=== PATIENT | female | born 1985 | race Caucasian/White ===

== ENCOUNTER → 2018-10-22 | Outpatient (CLI) | payer BC ==
[~2018-10-22] MED LIST: ACET325 PO; ALBU90OI INH; ASCO1ER PO; AZIT250 PO; CYCL10 PO; ERYSTE250 PO; HYDACE5 PO; HYDACE5325 PO; IBUP800 PO; OMEPRAZOLE MAGN20 MG PO; TYLENOL PO; ZOLOFT PO
[2018-10-22 10:46] LABS: BASOPHILS ABSOLUTE AUTO 0.09 K/mm3 (0.00-0.23); BASOPHILS PERCENT AUTO 1 % (0-2); EOSINOPHILS ABSOLUTE AUTO 0.33 K/mm3 (0.00-0.68); EOSINOPHILS PERCENT AUTO 4 % (0-6); Hematocrit 47.5 % (33.0-51.0); Hemoglobin 15.5 g/dL (11.5-16.0); IMMATURE GRAN ABSOLUTE AUTO 0.02 K/mm3 (0.00-0.10); IMMATURE GRAN PERCENT AUTO 0 % (0-1); LYMPHOCYTES ABSOLUTE AUTO 2.55 K/mm3 (0.84-5.20); LYMPHOCYTES PERCENT AUTO 33 % (21-46); MONOCYTES PERCENT AUTO 5 % (4-13); Mean Corpuscular HGB Conc 32.6 g/dL (31.5-36.5); Mean Corpuscular Volume 98 fL (80-100); Mean Platelet Volume 10.3 fL (9.1-12.4); NEUTROPHILS ABSOLUTE AUTO 4.33 K/mm3 (1.96-9.15); NEUTROPHILS PERCENT AUTO 56 % (41-73); Platelet Count 270 K/mm3 (150-400); RDW Coefficient Variation 12.5 % (11.7-14.2); RDW Standard Deviation 45.3 fL (35.1-46.3); Red Blood Cell Count 4.84 M/mm3 (3.80-5.20); White Blood Cell Count 7.72 K/mm3 (4.00-11.30)
[2018-10-22 11:12] LABS: Alanine Aminotransfer (ALT/SGP 126 U/L (12-78); Albumin, Blood 3.8 g/dL (3.4-5.0); Albumin/Globulin Ratio 1.1 (0.8-1.8); Alk Phos 86 U/L (50-136); Anion Gap 8 mmol/L (6-16); Aspartate Aminotrans (AST/SGOT 64 U/L (12-37); Bilirubin, Total 0.8 mg/dL (0.1-1.0); Blood Urea Nitrogen 11 mg/dL (8-24); Bun/Creatinine Ratio 15.8 (12.0-20.0); CO2, Blood 25 mmol/L (21-32); Calcium, Blood 8.7 mg/dL (8.5-10.1); Chloride, Blood 107 mmol/L (98-108); Globulin, Blood 3.6 g/dL (2.2-4.0); Glomerular Filtration Rate >60 (60-); Glucose, Blood 87 mg/dL (70-99); Potassium, Blood 4.4 mmol/L (3.5-5.5); Sodium, Blood 140 mmol/L (136-145); Total Protein, Blood 7.4 g/dL (6.4-8.2)
== END ==
LOC: LAB 10:20 → LAB SHORT 10:20
PROVIDERS: Nurse Practitioner
DX: G44.52 New daily persistent headache (NDPH) (principal); R53.82 Chronic fatigue, unspecified
CPT/HCPCS: 80053; 82728; 83036; 83690; 84443; 85025

== ENCOUNTER 2020-09-22 23:37 | Emergency (ER) | payer BC ==
[~2020-09-22] VITALS: Ht 175.3 cm; Wt 72.6 kg
[~2020-09-22 23:37] MED LIST changes: +TUMS500 MG PO
[2020-09-23] MEDS ORDERED: ERGO400 PO (00:02)
[2020-09-23] MEDS ORDERED: ESCI10 PO (00:02)
[2020-09-23] MEDS ORDERED: EPIPEN0.3 MG/0.3 IM (00:26)
== END 2020-09-23 00:50 | disposition left against medical advice (07) ==
LOC: ER 23:37
DX: T78.2XXA Anaphylactic shock, unspecified, initial encounter (principal); Z88.0 Allergy status to penicillin; Z88.2 Allergy status to sulfonamides; Z91.02 Food additives allergy status; Z91.030 Bee allergy status; Z79.899 Other long term (current) drug therapy
CPT/HCPCS: 36415; J0171; J1200; J2930; J7030

== ENCOUNTER → 2022-03-16 | Outpatient (CLI) | payer BC ==
[~2022-03-16] MED LIST changes: +EPIPEN0.3 MG/0.3 IM; +ERGO400 PO; +ESCI10 PO
[2022-03-16 09:49] LABS: BASOPHILS ABSOLUTE AUTO 0.07 K/mm3 (0.00-0.23); BASOPHILS PERCENT AUTO 1 % (0-2); EOSINOPHILS ABSOLUTE AUTO 0.23 K/mm3 (0.00-0.68); EOSINOPHILS PERCENT AUTO 3 % (0-6); Hemoglobin 15.8 g/dL (11.5-16.0); IMMATURE GRAN ABSOLUTE AUTO 0.01 K/mm3 (0.00-0.10); IMMATURE GRAN PERCENT AUTO 0 % (0-1); LYMPHOCYTES PERCENT AUTO 31 % (21-46); MONOCYTES ABSOLUTE AUTO 0.32 K/mm3 (0.16-1.47); MONOCYTES PERCENT AUTO 5 % (4-13); Mean Corpuscular HGB 32.8 pg (26.0-34.0); Mean Corpuscular HGB Conc 32.9 g/dL (31.5-36.5); Mean Corpuscular Volume 100 fL (80-100); Mean Platelet Volume 9.9 fL (9.1-12.4); NEUTROPHILS ABSOLUTE AUTO 4.14 K/mm3 (1.96-9.15); NEUTROPHILS PERCENT AUTO 60 % (41-73); Platelet Count 224 K/mm3 (150-400); RDW Coefficient Variation 14.3 % (11.7-14.2); RDW Standard Deviation 51.9 fL (35.1-46.3); Red Blood Cell Count 4.82 M/mm3 (3.80-5.20); White Blood Cell Count 6.87 K/mm3 (4.00-11.30)
[2022-03-16 10:35] LABS: Albumin, Blood 3.6 g/dL (3.4-5.0); Albumin/Globulin Ratio 0.8 (0.8-1.8); Bilirubin, Total 1.8 mg/dL (0.1-1.0); Bun/Creatinine Ratio 11.6 (12.0-20.0); Calcium, Blood 9.3 mg/dL (8.5-10.1); Creatinine, Blood 0.78 mg/dL (0.40-1.00); Globulin, Blood 4.5 g/dL (2.2-4.0); Potassium, Blood 4.3 mmol/L (3.5-5.5); Thyroid Stimulating Hormone 1.93 uIU/mL (0.360-4.800); Total Protein, Blood 8.1 g/dL (6.4-8.2)
== END | disposition home or self-care (01) ==
LOC: LAB SHORT 09:42
PROVIDERS: Physician Assistant Surgical
DX: I10 Essential (primary) hypertension (principal); R53.83 Other fatigue
CPT/HCPCS: 80053; 84443; 85025

== ENCOUNTER 2022-04-29 15:52 | Observation (INO) | payer OTHER ==
[~2022-04-29] VITALS: Ht 165.1 cm; Wt 99.7 kg
[2022-04-29] MEDS ORDERED: Prinivil10 MG PO (16:13)
[2022-04-29 16:27] LABS: BASOPHILS ABSOLUTE AUTO 0.11 K/mm3 (0.00-0.23); BASOPHILS PERCENT AUTO 1 % (0-2); EOSINOPHILS ABSOLUTE AUTO 0.14 K/mm3 (0.00-0.68); EOSINOPHILS PERCENT AUTO 2 % (0-6); Hematocrit 49.6 % (33.0-51.0); Hemoglobin 16.5 g/dL (11.5-16.0); IMMATURE GRAN ABSOLUTE AUTO 0.02 K/mm3 (0.00-0.10); IMMATURE GRAN PERCENT AUTO 0 % (0-1); LYMPHOCYTES ABSOLUTE AUTO 3.89 K/mm3 (0.84-5.20); LYMPHOCYTES PERCENT AUTO 41 % (21-46); MONOCYTES ABSOLUTE AUTO 0.37 K/mm3 (0.16-1.47); MONOCYTES PERCENT AUTO 4 % (4-13); Mean Corpuscular HGB 31.9 pg (26.0-34.0); Mean Corpuscular HGB Conc 33.3 g/dL (31.5-36.5); Mean Corpuscular Volume 96 fL (80-100); Mean Platelet Volume 9.8 fL (9.1-12.4); NEUTROPHILS ABSOLUTE AUTO 5.03 K/mm3 (1.96-9.15); NEUTROPHILS PERCENT AUTO 53 % (41-73); Platelet Count 295 K/mm3 (150-400); RDW Coefficient Variation 13.3 % (11.7-14.2); RDW Standard Deviation 47.6 fL (35.1-46.3); Red Blood Cell Count 5.17 M/mm3 (3.80-5.20); White Blood Cell Count 9.56 K/mm3 (4.00-11.30)
[2022-04-29 16:46] LABS: Albumin, Blood 3.9 g/dL (3.4-5.0); Albumin/Globulin Ratio 0.8 (0.8-1.8); Bilirubin, Total 0.9 mg/dL (0.1-1.0); Bun/Creatinine Ratio 5.3 (12.0-20.0); Calcium, Blood 10.1 mg/dL (8.5-10.1); Creatinine, Blood 0.76 mg/dL (0.40-1.00); Globulin, Blood 4.6 g/dL (2.2-4.0); Potassium, Blood 3.6 mmol/L (3.5-5.5); Total Protein, Blood 8.5 g/dL (6.4-8.2)
--- NOTE | 2022-04-29 23:12 | NUR ---
ADMISSION: PATIENT IS RECIEVED VIA WHEEL CHAIR FROM ER. ABLE TO AMB. TO THE BED WITH A STEADY GAIT. REPORTS CHEST FLUTTERING AND OCCASSIONAL SHARP PAIN. HR IS 83. O2 SAT IS 94% ON ROOM AIR. PATIENT IS ORIENTED TO THE ROOM AND THE CALL CHAVEZ. CONT. PULSE OX IN PLACE.
[2022-04-30 05:03] LABS: BASOPHILS ABSOLUTE AUTO 0.09 K/mm3 (0.00-0.23); BASOPHILS PERCENT AUTO 1 % (0-2); EOSINOPHILS PERCENT AUTO 3 % (0-6); Hematocrit 44.6 % (33.0-51.0); Hemoglobin 14.5 g/dL (11.5-16.0); IMMATURE GRAN ABSOLUTE AUTO 0.01 K/mm3 (0.00-0.10); IMMATURE GRAN PERCENT AUTO 0 % (0-1); LYMPHOCYTES ABSOLUTE AUTO 3.97 K/mm3 (0.84-5.20); LYMPHOCYTES PERCENT AUTO 49 % (21-46); MONOCYTES ABSOLUTE AUTO 0.41 K/mm3 (0.16-1.47); MONOCYTES PERCENT AUTO 5 % (4-13); Mean Corpuscular HGB 31.6 pg (26.0-34.0); Mean Corpuscular HGB Conc 32.5 g/dL (31.5-36.5); Mean Corpuscular Volume 97 fL (80-100); Mean Platelet Volume 9.7 fL (9.1-12.4); NEUTROPHILS ABSOLUTE AUTO 3.46 K/mm3 (1.96-9.15); NEUTROPHILS PERCENT AUTO 43 % (41-73); Platelet Count 259 K/mm3 (150-400); RDW Coefficient Variation 13.5 % (11.7-14.2); RDW Standard Deviation 48.7 fL (35.1-46.3); Red Blood Cell Count 4.59 M/mm3 (3.80-5.20); White Blood Cell Count 8.14 K/mm3 (4.00-11.30)
[2022-04-30 05:37] LABS: Albumin/Globulin Ratio 0.8 (0.8-1.8); Bilirubin, Total 1.4 mg/dL (0.1-1.0); Bun/Creatinine Ratio 5.1 (12.0-20.0); Calcium, Blood 8.8 mg/dL (8.5-10.1); Creatinine, Blood 0.78 mg/dL (0.40-1.00); Globulin, Blood 3.8 g/dL (2.2-4.0); Potassium, Blood 3.8 mmol/L (3.5-5.5); Total Protein, Blood 6.8 g/dL (6.4-8.2)
--- NOTE | 2022-04-30 06:27 | NUR ---
SHIFT SUMMARY: PATIENT CONTINUES TO REPORT PAIN UNDER LEFT BREAST. RATES PAIN 4-8/10 OCCASSIONALLY. TELI REPORTS NO EVENTS OR TACHYCARDIA. VSS AND PATIENT HAS REMAINED NPO THRU THE NIGHT IN PREPARATION FOR THE STRESS TEST.
--- NOTE | 2022-04-30 17:35 | NUR ---
DAYSHIFT SUMMARY Patient NPO this morning for 2- day stress test. Patient will complete test tomorrow morning. NPO at midnight. Saturations stable on RA, patient reports OSB when ambulating to bathroom. Reports chest pain occurs intermittently. Tele in place, Sinus Rhythm.
[2022-05-01 05:32] LABS: BASOPHILS ABSOLUTE AUTO 0.07 K/mm3 (0.00-0.23); BASOPHILS PERCENT AUTO 1 % (0-2); EOSINOPHILS ABSOLUTE AUTO 0.28 K/mm3 (0.00-0.68); EOSINOPHILS PERCENT AUTO 4 % (0-6); Hemoglobin 15.1 g/dL (11.5-16.0); IMMATURE GRAN ABSOLUTE AUTO 0.02 K/mm3 (0.00-0.10); IMMATURE GRAN PERCENT AUTO 0 % (0-1); LYMPHOCYTES ABSOLUTE AUTO 3.15 K/mm3 (0.84-5.20); LYMPHOCYTES PERCENT AUTO 41 % (21-46); MONOCYTES ABSOLUTE AUTO 0.36 K/mm3 (0.16-1.47); MONOCYTES PERCENT AUTO 5 % (4-13); Mean Corpuscular HGB Conc 32.8 g/dL (31.5-36.5); Mean Corpuscular Volume 98 fL (80-100); Mean Platelet Volume 9.9 fL (9.1-12.4); NEUTROPHILS ABSOLUTE AUTO 3.83 K/mm3 (1.96-9.15); NEUTROPHILS PERCENT AUTO 50 % (41-73); Platelet Count 251 K/mm3 (150-400); RDW Coefficient Variation 13.2 % (11.7-14.2); RDW Standard Deviation 47.3 fL (35.1-46.3); Red Blood Cell Count 4.72 M/mm3 (3.80-5.20); White Blood Cell Count 7.71 K/mm3 (4.00-11.30)
[2022-05-01 05:53] LABS: Bun/Creatinine Ratio 10.1 (12.0-20.0); Calcium, Blood 8.9 mg/dL (8.5-10.1); Creatinine, Blood 0.79 mg/dL (0.40-1.00); Potassium, Blood 4.2 mmol/L (3.5-5.5)
--- NOTE | 2022-05-01 17:55 | NUR ---
DAYSHIFT SUMMARY Completed 2-day stress test this morning, & ECHO. MD discussed results with patient, and planned for discharge this afternoon, pending ECHO results. Home O2 evaluation completed, RT recommending 2lpm. MD decided to keep patient with another night, ECHO results still pending. MD concerned that patient is SOB with ambulation, she is young & requiring home oxygen. MD ordered noc oximetry & pulmonology consult. Animal Daycare Provider came to see patient, still awaiting ECHO results to determine next steps. Vitals stable, NSR. Saturations stable on RA at rest, but requires oxygen when ambulating.
--- NOTE | 2022-05-02 05:51 | NUR ---
SHIFT SUMMARY AOX4. VSS. TELE NSR HR 93. REPORTS 4/10 MID STERNUM CP LAST NIGHT WHICH WAS INTERMITTANT FOR ROUGHLY 15MIN & DENIES ANY FURTHER CHEST DISCOMFORT T/O NIGHT. DENIES N/V. REPORTS DYSPNEA AFTER AMBULATING TO RESTROOM & BACK TO BED. SPO2 OCC DROPS TO 88% ON RA WHILE AT REST, HOWEVER QUICKLY RECOVERS TO 91-92% ON RA. LS DIM IN BASES. E/U RESP. STATES SHE HAS FELT DYSPNIC SINCE HAVING COVID BACK IN SEP 2021. SLEEP STUDY FINISHED TONIGHT. CALL LIGHT IN REACH & PT HOPING TO DC. WILL MONITOR.
--- NOTE | 2022-05-02 12:54 | NUR ---
Brief supportive visit this afternoon. Pt being D/C home today. Reviewed plan to F/U with Dr Vanegas out patient. Offered suggestions if anxiety occurs when symptoms present and educated on distraction technique. Pt reports being egar to go home with no concerns at this time. Spoke with Primary RN Braydon and discussed case.
[2022-05-02] MEDS ORDERED: METO25 PO (15:06)
--- NOTE | 2022-05-02 15:39 | NUR ---
PT DISCHARGED 1530 WITH DC INSTRUCTIONS. JC ROCA- TO CONTACT PATIENT FOR FOLLOWUP. PT SENT WITH PORTABLE OXYGEN. BUTCH TO DELIVER CONCENTRATOR TO HOUSE. SENT HOME WITH BELONGINGS. STAFF ESCORT OUT TO PRIVATE CAR IN WHEELCHAIR.
== END 2022-05-02 15:30 | disposition home or self-care (01) ==
LOC: ER 15:52 → MEDS 15:53
PROVIDERS: Family Medicine; Internal Medicine; Physician Assistant; ADMIT Internal Medicine
DX: R07.89 Other chest pain (principal); F41.9 Anxiety disorder, unspecified; I10 Essential (primary) hypertension; R09.02 Hypoxemia; R00.0 Tachycardia, unspecified; Z88.0 Allergy status to penicillin; Z88.2 Allergy status to sulfonamides; Z90.710 Acquired absence of both cervix and uterus
CPT/HCPCS: 36415; 71045; 71260; 78452; 80048; 80053; 84484; 85025; 85379; 93005; 93010; 93017; 93306; 93308; 93321; 94664; 94760; 94761; 94762; 96361; 96374; 96376; 99285-25; A9270; A9500; G0378; J0706; J2405; J2785; J7030; Q9967

== ENCOUNTER → 2024-11-23 | Outpatient (CLI) | payer OTHER ==
[~2024-11-23] MED LIST changes: +METO25 PO; +Prinivil10 MG PO
== END | disposition home or self-care (01) ==
LOC: LAB 12:49 → LAB SHORT 12:49
DX: L03.115 Cellulitis of right lower limb (principal)
CPT/HCPCS: 87070; 87075; 87205